=== PATIENT | female | born 1985 | race Caucasian/White ===

== ENCOUNTER 2020-04-27 12:15 | Outpatient (REF) | payer OTHER, SELFPAY | END 2020-04-27 12:16 | disposition home or self-care (01) | LOC: HO.HMGCLDS 12:15 | PROVIDERS: PCP Internal Medicine; Visit Provider Internal Medicine | DX: Z20.828 Contact with and (suspected) exposure to other viral communicable diseases (principal) | CPT/HCPCS: 87635 ==

== ENCOUNTER 2020-06-20 12:04 | Outpatient (REF) | payer OTHER, SELFPAY | END 2020-06-20 12:05 | disposition home or self-care (01) | LOC: HO.HMGCLDS 12:04 | PROVIDERS: Visit Provider Internal Medicine | DX: Z20.828 Contact with and (suspected) exposure to other viral communicable diseases (principal) | CPT/HCPCS: C9803; U0003 ==

== ENCOUNTER 2020-08-14 12:32 | Outpatient (REF) | payer OTHER, SELFPAY ==
--- NOTE | 2020-08-14 12:34 | MR_ITS ---
EXAMINATION: MR BRAIN WITHOUT AND WITH CONTRAST CLINICAL INFORMATION: Headache. COMPARISON: Brain MRI dated 05/27/2016. TECHNIQUE: Multiplanar, multisequence imaging of the brain was performed before and after the intravenous administration of 10 mL of Gadavist. FINDINGS: No diffusion abnormalities are identified to suggest an acute infarct. A small 5 mm round T2 hypointense nodule with enhancement contiguous with a portion of the cord plexus in the left lateral ventricle remains unchanged. The ventricles are normal in size. No mass effect or midline shift is seen. No brain parenchymal signal abnormality is noted. No extra-axial fluid collections are seen. The brainstem and cerebellum are normal. There is no abnormal parenchymal or leptomeningeal enhancement. The gradient refocused acquisition demonstrates no pathologic magnetic susceptibility artifact to indicate underlying acute or chronic blood products. The orbits and pituitary axis appear normal. The craniovertebral junction, marrow signal, and midline structures are normal. The major intracranial flow voids at the level of the [place] are preserved. The dural venous sinus flow voids are maintained. The mastoid air cells and paranasal sinuses are well aerated. MR/MR head/brain wo/w con IMPRESSION: Stable nonspecific, small enhancing left lateral intraventricular nodule. Otherwise, relatively normal MRI of the brain. No acute process.
== END 2020-08-14 12:33 | disposition home or self-care (01) ==
LOC: HO.MRI 12:32
PROVIDERS: Visit Provider Internal Medicine
DX: R51.9 Headache, unspecified (principal)
CPT/HCPCS: 70553; A9585

== ENCOUNTER 2021-02-12 11:15 | Outpatient (REF) | payer OTHER, SELFPAY ==
[2021-02-12 13:47] LABS: MANUAL DIFF FLAG NO
[2021-02-12 13:58] LABS: Basophils Percent Auto 0.4 % (0-2); Eosinophils Absolute Auto 0.3 X10*3/uL (0.0-0.4); Hematocrit 43.2 % (37-47); Hemoglobin 13.9 g/dl (12.0-16.0); Imm Gran Abs Auto 0.01 X10*3/uL (0.00-0.03); Imm Gran Pct Auto 0.1 % (0.0-0.4); Lymphocytes Absolute Auto 1.9 X10*3/uL (1.2-4.9); Lymphocytes Percent Auto 28.1 % (20-40); Mean Corpuscular HGB Conc 32.2 g/dl (31.0-35.0); Mean Corpuscular Hemoglobin 28.5 pg (27.0-33.0); Mean Corpuscular Volume 88.7 fL (80-98); Mean Platelet Volume 12.1 fL (9.4-12.3); Monocytes Absolute Auto 0.4 X10*3/uL (0.1-1.2); Monocytes Percent Auto 6.1 % (2-11); Neutrophils Absolute Auto 4.1 X10*3/uL (2.0-8.3); Neutrophils Percent Auto 61.3 % (45-73); Platelet Count 282 X10*3/uL (160-400); Red Blood Count 4.87 X10*6/uL (4.20-5.50); Red Cell Distribution Width 12.7 % (11.0-16.0); White Blood Count 6.7 X10*3/uL (4.8-10.8)
[2021-02-12 14:41] LABS: Anion Gap 13 (12-20); Blood Urea Nitrogen 11 mg/dL (9-16); Calcium 9.1 mg/dL (8.4-10.2); Carbon Dioxide 27 mmol/L (22-29); Chloride 107 mmol/L (96-108); Cholesterol 207 mg/dL; Estimated Glomerular Filt Rate > 60; Glucose Fasting 91 mg/dL (60-99); HDL Cholesterol 34 mg/dL; LDL Cholesterol Calculated 143 mg/dl; Potassium 4.8 mmol/L (3.3-5.1); Sodium 142 mmol/L (135-145); Triglycerides 150 mg/dL
[2021-02-12 15:02] LABS: Vitamin D 25-OH Total 17.8 ng/mL (>30)
[2021-02-12 15:15] LABS: Folate 12.5 ng/mL (> or = 4.0); Vitamin B12 215 pg/mL (200-900)
[2021-02-14 20:10] LABS: TS Negative Control Passed; TS Panel A 0; TS Panel B 1; TS Positive Control Passed; TSpotTB Negative (SeeBelow)
== END 2021-02-12 11:16 | disposition home or self-care (01) ==
LOC: HO.HMGCLDS 11:15
PROVIDERS: PCP Internal Medicine; Visit Provider Nurse Practitioner Family
DX: I10 Essential (primary) hypertension (principal); R51.9 Headache, unspecified; G93.89 Other specified disorders of brain; E78.5 Hyperlipidemia, unspecified; E55.9 Vitamin D deficiency, unspecified; E53.8 Deficiency of other specified B group vitamins; E66.01 Morbid (severe) obesity due to excess calories; Z02.1 Encounter for pre-employment examination
CPT/HCPCS: 36415; 80048; 80061; 82306; 82607; 82746; 85025; 86481

== ENCOUNTER 2021-02-26 09:14 | Outpatient (REF) | payer OTHER, SELFPAY | END 2021-02-26 09:15 | disposition home or self-care (01) | LOC: HO.HMGCLDS 09:14 | PROVIDERS: Hospitalist; PCP Internal Medicine; Visit Provider Internal Medicine | DX: Z20.822 Contact with and (suspected) exposure to COVID-19 (principal) | CPT/HCPCS: U0003; U0005 ==

== ENCOUNTER 2021-04-18 11:26 | Outpatient (REF) | payer OTHER, SELFPAY ==
[2021-04-18 13:48] LABS: Baso%MD 0.4 %; Eos%MD 2.3 %; Hematocrit 43.6 % (37-47); IG%MD 0.2 %; Lymph%MD 32.7 %; Mean Corpuscular HGB Conc 32.1 g/dl (31.0-35.0); Mean Corpuscular Hemoglobin 28.3 pg (27.0-33.0); Mean Corpuscular Volume 88.3 fL (80-98); Mean Platelet Volume 12.2 fL (9.4-12.3); Mono%MD 6.4 %; Platelet Count 287 X10*3/uL (160-400); Red Blood Count 4.94 X10*6/uL (4.20-5.50); Red Cell Distribution Width 12.8 % (11.0-16.0)
[2021-04-18 14:17] LABS: Alanine Aminotransferase 22 U/L (0-31); Alkaline Phosphatase 85 U/L (39-117); Anion Gap 10 (12-20); Aspartate Amino Transferase 19 U/L (5-31); Bilirubin Total 0.5 mg/dL (0.0-1.0); Blood Urea Nitrogen 12 mg/dL (9-16); Calcium 9.7 mg/dL (8.4-10.2); Carbon Dioxide 28 mmol/L (22-29); Chloride 105 mmol/L (96-108); Estimated Glomerular Filt Rate > 60; Glucose Random 85 mg/dL (60-115); Lipase 16 U/L (8-78); Potassium 4.7 mmol/L (3.3-5.1); Sodium 138 mmol/L (135-145)
[2021-04-18 14:36] LABS: Band Neutrophils Percent 2 % (3-5); Eosinophils Absolute Manual 0.2 X10*3/UL (0.0-0.8); Eosinophils Percent Manual 2 % (0-4); Lymphocytes Absolute Manual 2.5 X10*3/uL (0.6-4.8); Lymphocytes Percent Manual 28 % (20-40); Monocytes Absolute Manual 0.6 X10*3/uL (0.0-1.2); Monocytes Percent Manual 7 % (2-11); Neutrophils Absolute Manual 5.7 X10*3/uL (2.2-7.9); Neutrophils Percent Manual 61 % (45-73)
[2021-04-18 14:37] LABS: Platelet Estimate NORMAL (NORMAL); Platelet Morphology Comment NORMAL; RBC Morphology NORMAL
== END 2021-04-18 11:27 | disposition home or self-care (01) ==
LOC: HO.HMGCLDS 11:26
PROVIDERS: PCP Internal Medicine; Visit Provider Physician Assistant Medical
DX: R10.13 Epigastric pain (principal)
CPT/HCPCS: 36415; 80053; 83690; 85007; 85027

== ENCOUNTER 2021-06-02 12:16 | Emergency (ER) | payer OTHER, SELFPAY ==
--- NOTE | ~2021-06-02 | CT_ITS ---
EXAMINATION: CT HEAD WITHOUT CONTRAST CT CERVICAL SPINE WITHOUT CONTRAST CLINICAL INFORMATION: Dizziness, nausea and weakness. COMPARISON: Brain MRI of 08/14/2020. TECHNIQUE: Multidetector volumetric CT imaging of the head and cervical spine is acquired without intravenous contrast administration. Postprocessing is performed at a dedicated workstation. Multiplanar reformatted images are submitted. This CT scan was performed using dose optimization techniques as appropriate to a performed exam including the following: *Automated exposure control *Adjustment of mA and/or kV according to patient size (this includes techniques or standardized protocols for targeted exams were dose is matched to indication/reason for exam; i.e. extremities or head) *Use of iterative reconstruction technique DLP: 1164 mGy-cm. FINDINGS: CT Head: There is no evidence of acute intracranial hemorrhage, midline shift or mass effect. Gdmj-ru-wpvpg matter differentiation is well preserved. No acute territorial infarction. No abnormal extra-axial fluid collection. Ventricles and sulci are normal. No evidence of abnormal parenchymal attenuation. The osseous calvarium is intact. Mastoid air cells and middle ear cavities are well aerated. Paranasal sinuses are well aerated. Calvarial soft tissues are unremarkable. CT Cervical Spine: Vertebral body heights and alignment are maintained. There is mild reversal of the cervical lordosis. Intervertebral disc spaces are well preserved. Posterior elements are intact and in normal alignment. Atlantoaxial and atlantooccipital alignments are maintained. No evidence of prevertebral soft tissue swelling. No evidence of central canal or neural foraminal stenosis. The thyroid gland and visualized lung apices are unremarkable. CT/CT cervical spine wo con IMPRESSION: 1. No evidence of acute intracranial abnormality. 2. No evidence of acute fracture or subluxation in the cervical spine. Mild reversal of cervical lordosis is likely related to patient positioning or muscle spasm.
[2021-06-02 12:25] VITALS: BP 165/87; PULSE 71; RESP 18; O2SAT 100; BMI 43.2
--- NOTE | 2021-06-02 14:06 | ECG_ITS ---
Test Reason : DIZZYNESS Blood Pressure : / mmHG Vent. Rate : 054 BPM Atrial Rate : 054 BPM P-R Int : 166 ms QRS Dur : 078 ms QT Int : 466 ms P-R-T Axes : 035 039 027 degrees QTc Int : 441 ms Sinus bradycardia Otherwise normal ECG When compared with ECG of 24-JUN-2019 15:59, No significant change was found Referred By: David Black Electronically Signed By:DEE HWANG MD
--- NOTE | 2021-06-02 14:13 | ED_ITS ---
HPI - Dizziness General Chief Complaint: Dizziness <CEE Merlos - Last Filed: 06/02/21 17:30> Stated Complaint: dizziness <CEE Merlos - Last Filed: 06/02/21 17:30> Time Seen by Provider: 06/02/21 13:40 <CEE Merlos Last Filed: 06/02/21 17:30> Source: patient <CEE Merlos - Last Filed: 06/02/21 17:30> Mode of arrival: ambulatory <CEE Merlos Last Filed: 06/02/21 17:30> Limitations: no limitations <CEE Merlos Last Filed: 06/02/21 17:30> History of Present Illness HPI Narrative: 35-year-old female past medical history significant for migraines presents to the emergency department with severe dizziness and nausea which awoke her from her sleep at 3:00 a.m. today. Patient states that since 3:00 a.m. she has been very dizzy, she describes it as the room spinning around her, she also states that she is having issues when walking, and she feels like she is going to the sides. She also reports intermittent nausea since that time. Patient also describes feeling of fullness to her head, but it is not a headache. She states that this has never happened to her before. Patient denies numbness, tingling, fevers, chills, chest pain, shortness of breath, vomiting, abdominal pain, vision changes, difficulties speaking <CEE Merlos Last Filed: 06/02/21 17:30> MD elicited complaint: dizziness, difficulty walking and vertigo <CEE Merlos - Last Filed: 06/02/21 17:30> Onset (ago): hour(s) (11) <CEE Merlos Last Filed: 06/02/21 17:30> Timing: sudden onset, awoke with symptoms and constant <CEE Merlos Last Filed: 06/02/21 17:30> Severity: severe <CEE Merlos Last Filed: 06/02/21 17:30> Description: sense of movement, room spinning and off-balance <CEE Merlos - Last Filed: 06/02/21 17:30> Context: change in body position and at rest <CEE Merlos - Last Filed: 06/02/21 17:30> History of similar symptoms: No <CEE Merlos - Last Filed: 06/02/21 17:30> Exacerbating factors: movement/ambulation, change in body position and keeping eyes closed <CEE Merlos - Last Filed: 06/02/21 17:30> Relieving factors: nothing <CEE Merlos - Last Filed: 06/02/21 17:30> Associated symptoms: nausea <CEE Merlos - Last Filed: 06/02/21 17:30> Related Data Home Medications: Home Medications Medication Instructions Recorded Confirmed cholecalciferol (vitamin D3) 50 50 mcg PO DAILY 07/20/20 01/11/21 mcg (2,000 unit) capsule cyanocobalamin (vitamin B-12) 1,000 mcg PO DAILY 07/20/20 01/11/21 1,000 mcg tablet Previous Rx's Medication Instructions Recorded ehrjseljgi-ybuyzweaqfdku-jdxcrsrf 1 cap PO Q12H PRN #10 cap 08/03/20 50 mg-325 mg-40 mg capsule omeprazole 20 mg capsule,delayed 20 mg PO DAILY #30 cap 01/11/21 release cholecalciferol (vitamin D3) 1,250 1,250 mcg PO QWEEK 90 Days #13 cap 02/14/21 mcg (50,000 unit) capsule prednisone 20 mg tablet 20 mg PO .COMPLEX #18 tab 03/12/21 famotidine 20 mg tablet (Acid 20 mg PO BID PRN #60 tab 04/18/21 [employer] (famotidine)) omeprazole 40 mg capsule,delayed 40 mg PO DAILY #30 cap 04/18/21 release meclizine 25 mg tablet 25 mg PO DAILY PRN #14 tab 06/02/21 ondansetron HCl 4 mg tablet 4 mg PO Q8H PRN #10 tab 06/02/21 (Zofran) <CEE Merlos Last Filed: 06/02/21 17:30> Allergies/Adverse Reactions: Allergies Allergy/AdvReac Type Severity Reaction Status Date / Time No Known Allergies Allergy Verified 04/18/21 11:01 <CEE Merlos - Last Filed: 06/02/21 17:30> Review of Systems Review of Systems: Constitutional : No Weight loss, No Fever, No Chills, No Fatigue, No Malaise ENT/Mouth : No sore throat, No Rhinorrhea Eyes: No Eye Pain, No Swelling, No Redness Cardiovascular : No Chest Pain, No SOB, No Dyspnea on Exertion, No Orthopnea, No Edema, No Palpitations Respiratory : No Cough, No Sputum, No Wheezing Gastrointestinal : + Nausea, No Vomiting, No Diarrhea, No Constipation, No abdominal Pain, No Hematochezia, No Melena Genitourinary : No Dysuria, No Urinary Frequency, No Hematuria, Musculoskeletal : No joint pain, No Myalgias, No Joint Swelling Skin : No Skin Lesions, No rash Neuro : + Weakness, No Numbness, + Dizziness, No Headache, +fullness to head All other systems reviewed and are negative <CEE Merlos - Last Filed: 06/02/21 17:30> [facility] Past Medical History Attestation statement: The following information was validated with the patient. <CEE Merlos - Last Filed: 06/02/21 17:30> Source: old records reviewed and nursing notes reviewed <CEE Merlos - Last Filed: 06/02/21 17:30> Medical History: Medical History Chronic headaches Diarrhea Dyslipidemia Headache Mass of brain Morbid obesity Post-traumatic osteoarthritis of left knee Right ACL tear Vitamin B12 deficiency Vitamin D deficiency <CEE Merlos Last Filed: 06/02/21 17:30> Surgical History: Surgical History History of section History of left knee surgery History of oophorectomy, unilateral LAP-BAND surgery status Status post small bowel resection <CEE Merlos Last Filed: 06/02/21 17:30> Family History Family History: Family History Father Multiple myeloma Essential hypertension Diabetes mellitus Mother Essential hypertension Diabetes mellitus Asthma Mental health disorder Sister Thyroid condition Maternal Aunt Substance use disorder Maternal Grandmother Mental health disorder <CEE Merlos - Last Filed: 06/02/21 17:30> Social History Social History: Social History Alcohol intake: never Patient Tobacco Use Status: Never used Tobacco Advance Directives: No Advance Directives Information Provided: Yes Patient : No <CEE Merlos - Last Filed: 06/02/21 17:30> Physical Exam Vital Signs: Vital Signs: Last Vital Signs Pulse 71 06/02/21 17:32 Resp 16 06/02/21 17:30 BP 148/100 H 06/02/21 17:32 Pulse Ox 100 06/02/21 17:30 Body Mass Index 43.2 Patient's vital signs are stable, however, she is noted to be slightly hypertensive. Will repeat vitals at a later time. <CEE Merlos - Last Filed: 06/02/21 17:30> Vital Signs: Last Vital Signs Pulse 71 06/02/21 17:32 Resp 16 06/02/21 17:30 BP 148/100 H 06/02/21 17:32 Pulse Ox 100 06/02/21 17:30 Body Mass Index 43.2 <CEE Quintanilla - Last Filed: 06/02/21 21:06> Appearance: Alert.? Oriented X3.? No acute distress.? Head: Normocephalic, atraumatic, no step-offs or deformities. + patient reports dizziness with rapid movement of head Eyes: Pupils equal, round and reactive to light.? ENT: Pharynx normal.? Neck: Normal inspection.? Neck supple.? CVS: Normal heart rate and rhythm.? Pulses normal.? Respiratory: No respiratory distress.? Breath sounds normal.? Abdomen: Soft and nontender.? Skin: Skin warm and dry.? Normal skin color.? Normal skin turgor.? Extremities: No lower extremity edema.? No calf ttp. 5/5 strength to bilateral upper and lower extremities Back: No midline tenderness, no C-spine tenderness, full range of motion, no CVA tenderness bilaterally Neuro: Oriented X 3.? No motor deficit.? No sensory deficit. Normal gait. Normal hand oil rig roughneck. Normal zkibbf-px-bead. Normal ptop-ci-syba. Normal sensation to upper and lower extremities. <CEE Merlos - Last Filed: 06/02/21 17:30> Course Course Course Narrative: patient seen and examined - agree with assessment and plan <CEE Quintanilla - Last Filed: 06/02/21 21:06> Reevaluation(s) Reevaluation #1: Upon re-evaluation patient states that medications, and fluids really helped improve her symptoms. She now reports minimal dizziness. Able to ambulate, and no longer feels like she was feeling before. She states that the nausea is now gone. I will wait for the final read of the CT. If this is negative. My plan is to discharge the patient home with Zofran and meclizine as needed for dizziness. This is likley vertigo. Unlikely that this is a posterior stroke. <CEE Merlos - Last Filed: 06/02/21 17:30> Time: 16:33 <CEE Merlos - Last Filed: 06/02/21 17:30> Reevaluation #2: CT scan with no acute findings. To note, patient had an MRI of the brain done on August 14, 2020 which showed a stable nonspecific, small enhancing left lateral intra-articular nodule. Orthostatic vital signs pending. <CEE Merlos - Last Filed: 06/02/21 17:30> Time: 17:02 <CEE Merlos Last Filed: 06/02/21 17:30> Reevaluation #3: Orthostatic vital signs negative. Patient is safe for discharge home with PCP follow-up. <CEE Merlos Last Filed: 06/02/21 17:30> Time: 17:22 <CEE Merlos Last Filed: 06/02/21 17:30> MDM - Dizziness MDM Narrative Medical decision making narrative: 1413 35-year-old female past medical history significant for migraines presents to the emergency department with severe dizziness described as vertigo and nausea which awoke her from her sleep at 3:00 a.m. today. She also reports difficulty with ambulation, she feels like she is falling to the sides and she reports genrealized weakness. Denies recent URI, difficulty with speech, CP, SOB, vom iting, vision changes, headache, tinnitus, photophobia. Patient has been eating and drinking well, and reports that yesterday she felt fine. Upon physical examination patient is resting comfortably on the stretcher with her eyes closed. In no acute distress. Lungs are clear to auscultation. S1 and S2 appreciated free of murmurs. No focal neuro deficits. 5/5 strength upper and lower extremities. No pronator drift. Normal hand oil rig roughneck. Normal bfphlf-es-yldj. Normal jora-aj-yuxp. Patient's gait is steady, free of ataxia, however she reports as though she feels like she is going to the sides. Normal rapid alternating movements. Extraocular movements intact free of nystagmus. Pupils equal round and reactive to light. Patient reports dizziness with rapid movement of head. Bilateral tympanic membranes pearly white with normal landmarks, no effusion, edema, cerumen impaction, perforated TM or erythema noted Plan at this time is to obtain basic labs, magnesium, COVID, EKG, CT of the cervical spine, and CT of head and brain. She will be given fluids, Zofran, meclizine. This is likely vertigo, however ICH,/stroke and electrolyte abnormalities will be ruled out. <CEE Merlos - Last Filed: 06/02/21 17:30> Medical Records Attestation: I reviewed the patient's medical records. <CEE Merlos - Last Filed: 06/02/21 17:30> Lab Data Attestation: I reviewed the patient's lab results. <CEE Merlos - Last Filed: 06/02/21 17:30> Result diagrams: : 06/02/21 14:30 06/02/21 14:30 <CEE Merlos - Last Filed: 06/02/21 17:30> Labs: Lab Results 06/02/21 06/02/21 06/02/21 Range/Units 14:26 14:30 14:30 WBC 8.0 (4.8-10.8) X10*3/uL RBC 4.97 (4.20-5.50) X10*6/uL Hgb 14.4 (12.0-16.0) g/dl Hct 43.3 (37.0-47.0) % MCV 87.1 (80.0-98.0) fL MCH 29.0 (27.0-33.0) pg MCHC 33.3 (31.0-35.0) g/dl RDW 12.2 (11.0-16.0) % Plt Count 291 (160-400) X10*3/uL MPV 11.6 (9.4-12.3) fL Immature Gran % (Auto) 0.3 (0.0-0.4) % Neut % (Auto) 54.8 (45-73) % Lymph % (Auto) 35.9 (20-40) % [place] % (Auto) 6.0 (2-11) % Eos % (Auto) 2.6 (0-4) % Baso % (Auto) 0.4 (0-2) % Lymph # (Auto) 2.9 (1.2-4.9) X10*3/uL [place] # (Auto) 0.5 (0.1-1.2) X10*3/uL Eos # (Auto) 0.2 (0.0-0.4) X10*3/uL Baso # (Auto) 0.0 (0.0-0.2) X10*3/uL Abs Immat Gran (auto) 0.02 (0.00-0.03) X10*3/uL Absolute Neuts (auto) 4.4 (2.0-8.3) x10*3/uL Absolute Nucleated RBC 0.000 (0.0-0.012) X10*3/uL Nucleated RBC % (auto) 0.0 (0.0-0.2) /100WBC Sodium 137 (135-145) mmol/L Potassium 4.2 (3.3-5.1) mmol/L Chloride 103 (96-108) mmol/L Carbon Dioxide 27 (22-29) mmol/L Anion Gap 11 L (12-20) BUN 10 (9-16) mg/dL Creatinine 0.78 (0.5-1.4) mg/dL Estim Creat Clear Calc 129.3 Estimated GFR > 60 Random Glucose 84 (60-115) mg/dL Calcium 9.3 (8.4-10.2) mg/dL Magnesium 1.9 (1.6-2.6) mg/dL Total Bilirubin 0.5 (0.0-1.0) mg/dL AST 20 (5-31) U/L ALT 21 (0-31) U/L Alkaline Phosphatase 92 (39-117) U/L Total Protein 7.1 (6.5-8.0) g/dL Albumin 3.9 (3.5-5.0) g/dL COVID-19 (KAVYA) Negative (Negative) COVID-19 Clin Com See Note <CEE Merlos - Last Filed: 06/02/21 17:30> Lab Results 06/02/21 06/02/21 06/02/21 Range/Units 14:26 14:30 14:30 WBC 8.0 (4.8-10.8) X10*3/uL RBC 4.97 (4.20-5.50) X10*6/uL Hgb 14.4 (12.0-16.0) g/dl Hct 43.3 (37.0-47.0) % MCV 87.1 (80.0-98.0) fL MCH 29.0 (27.0-33.0) pg MCHC 33.3 (31.0-35.0) g/dl RDW 12.2 (11.0-16.0) % Plt Count 291 (160-400) X10*3/uL MPV 11.6 (9.4-12.3) fL Immature Gran % (Auto) 0.3 (0.0-0.4) % Neut % (Auto) 54.8 (45-73) % Lymph % (Auto) 35.9 (20-40) % [place] % (Auto) 6.0 (2-11) % Eos % (Auto) 2.6 (0-4) % Baso % (Auto) 0.4 (0-2) % Lymph # (Auto) 2.9 (1.2-4.9) X10*3/uL [place] # (Auto) 0.5 (0.1-1.2) X10*3/uL Eos # (Auto) 0.2 (0.0-0.4) X10*3/uL Baso # (Auto) 0.0 (0.0-0.2) X10*3/uL Abs Immat Gran (auto) 0.02 (0.00-0.03) X10*3/uL Absolute Neuts (auto) 4.4 (2.0-8.3) x10*3/uL Absolute Nucleated RBC 0.000 (0.0-0.012) X10*3/uL Nucleated RBC % (auto) 0.0 (0.0-0.2) /100WBC Sodium 137 (135-145) mmol/L Potassium 4.2 (3.3-5.1) mmol/L Chloride 103 (96-108) mmol/L Carbon Dioxide 27 (22-29) mmol/L Anion Gap 11 L (12-20) BUN 10 (9-16) mg/dL Creatinine 0.78 (0.5-1.4) mg/dL Estim Creat Clear Calc 129.3 Estimated GFR > 60 Random Glucose 84 (60-115) mg/dL Calcium 9.3 (8.4-10.2) mg/dL Magnesium 1.9 (1.6-2.6) mg/dL Total Bilirubin 0.5 (0.0-1.0) mg/dL AST 20 (5-31) U/L ALT 21 (0-31) U/L Alkaline Phosphatase 92 (39-117) U/L Total Protein 7.1 (6.5-8.0) g/dL Albumin 3.9 (3.5-5.0) g/dL COVID-19 (KAVYA) Negative (Negative) COVID-19 Clin Com See Note <CEE Quintanilla - Last Filed: 06/02/21 21:06> Imaging Data CT of head/cervical spine.: Attestation: I personally reviewed and interpreted this imaging study as follows: <CEE Merlos - Last Filed: 06/02/21 17:30> Radiologist's impression: CT/CT cervical spine wo con IMPRESSION: 1. No evidence of acute intracranial abnormality. ? 2. No evidence of acute fracture or subluxation in the cervical spine. Mild reversal of cervical lordosis is likely related to patient positioning or muscle spasm.? <CEE Merlos - Last Filed: 06/02/21 17:30> ECG Data Attestation: I personally reviewed and interpreted this ECG as follows: <CEE Merlos - Last Filed: 06/02/21 17:30> ECG interpretation date: 06/02/21 <CEE Merlos - Last Filed: 06/02/21 17:30> ECG interpretation time: 15:43 <CEE Merlos - Last Filed: 06/02/21 17:30> Prior ECG tracings: available for review <CEE Merlos - Last Filed: 06/02/21 17:30> Interpretation: Ventricular rate of 54, TX interval normal, QRS normal, QT/QTC normal. EKG shows sinus bradycardia, no ST elevations or inversions. No acute ischemia. No acute changes when compared to EKG from June 24, 2019. <CEE Merlos - Last Filed: 06/02/21 17:30> Critical Care Time Critical Care Time Critical Care Time: No <CEE Merlos - Last Filed: 06/02/21 17:30> Discharge Plan Discharge Clinical Impression: Vertigo, Nausea <CEE Merlos - Last Filed: 06/02/21 17:30> Patient Disposition: Home, Self-Care <CEE Merlos - Last Filed: 06/02/21 17:30> Instructions: Vertigo (ED), Dizziness (ED) <CEE Merlos - Last Filed: 06/02/21 17:30> Additional Instructions: Take your medications as prescribed. If you were prescribed antibiotics today, it is important that you take your medication to their entirety, do not skip any doses, do not finish them early. Zofran is a medication use intake for nausea/vomiting. Meclizine is a medication for dizziness, take this as needed. Follow-up with your primary care provider this week. Return to the emergency department with new or worsening symptoms. Such as worsening dizziness, vision changes, weakness, chest pain, shortness of breath, fevers, chills, headaches. In case of emergency call 911 <CEE Merlos - Last Filed: 06/02/21 17:30> Prescriptions: New meclizine 25 mg tablet 25 mg PO DAILY PRN (Reason: dizziness) Qty: 14 RF: 0 ondansetron HCl [Zofran] 4 mg tablet 4 mg PO Q8H PRN (Reason: nausea and vomiting) Qty: 10 RF: 0 No Action pymahfggrg-kqpaftgqbukeu-aeey 50-325-40 mg capsule 1 cap PO Q12H PRN (Reason: headache) Qty: 10 RF: 0 cholecalciferol (vitamin D3) 1,250 mcg (50,000 unit) capsule 1,250 mcg PO QWEEK 90 Days Qty: 13 RF: 0 omeprazole 20 mg capsule,delayed release(DR/EC) 20 mg PO DAILY Qty: 30 RF: 0 cyanocobalamin (vitamin B-12) 1,000 mcg tablet 1,000 mcg PO DAILY RF: 0 cholecalciferol (vitamin D3) 50 mcg (2,000 unit) capsule 50 mcg PO DAILY RF: 0 prednisone 20 mg tablet 20 mg PO .COMPLEX Qty: 18 RF: 0 omeprazole 40 mg capsule,delayed release(DR/EC) 40 mg PO DAILY Qty: 30 RF: 0 famotidine [Acid [employer] (famotidine)] 20 mg tablet 20 mg PO BID PRN (Reason: dyspepsia) Qty: 60 RF: 0 <CEE Merlos - Last Filed: 06/02/21 17:30> Referrals: Sarah Sal MD [Primary Care Provider] - 2 days <CEE Merlos - Last Filed: 06/02/21 17:30> Stand Alone Forms: Work/School Release <CEE Merlos - Last Filed: 06/02/21 17:30> Interventions: ED Discharge Assessment Last Done: 06/02/21 17:47 <CEE Merlos Last Filed: 06/02/21 17:30> Discharge Date/Time: 06/02/21 17:47 <CEE Merlos - Last Filed: 06/02/21 17:30>
[2021-06-02] MEDS: Meclizine HCl 25 MG TABLET PO (14:58)
[2021-06-02] MEDS: ondansetron HCL 4 MG/2 ML VIAL IVPUSH (14:58)
[2021-06-02 14:59] LABS: MANUAL DIFF FLAG NO
[2021-06-02] MEDS: 0.9 % Sodium Chloride 1,000 ML 999 ML IV (14:59)
[2021-06-02 15:07] LABS: Basophils Percent Auto 0.4 % (0-2); Eosinophils Absolute Auto 0.2 X10*3/uL (0.0-0.4); Eosinophils Percent Auto 2.6 % (0-4); Hematocrit 43.3 % (37.0-47.0); Hemoglobin 14.4 g/dl (12.0-16.0); Imm Gran Abs Auto 0.02 X10*3/uL (0.00-0.03); Imm Gran Pct Auto 0.3 % (0.0-0.4); Lymphocytes Absolute Auto 2.9 X10*3/uL (1.2-4.9); Lymphocytes Percent Auto 35.9 % (20-40); Mean Corpuscular HGB Conc 33.3 g/dl (31.0-35.0); Mean Corpuscular Volume 87.1 fL (80.0-98.0); Mean Platelet Volume 11.6 fL (9.4-12.3); Monocytes Absolute Auto 0.5 X10*3/uL (0.1-1.2); Neutrophils Absolute Auto 4.4 x10*3/uL (2.0-8.3); Neutrophils Percent Auto 54.8 % (45-73); Platelet Count 291 X10*3/uL (160-400); Red Blood Count 4.97 X10*6/uL (4.20-5.50); Red Cell Distribution Width 12.2 % (11.0-16.0)
[2021-06-02 15:13] LABS: COVID-19 Test Negative (Negative); IDNOW Serial# 9DD0AD1C
[2021-06-02 15:44] LABS: Alanine Aminotransferase 21 U/L (0-31); Albumin Level 3.9 g/dL (3.5-5.0); Alkaline Phosphatase 92 U/L (39-117); Anion Gap 11 (12-20); Aspartate Amino Transferase 20 U/L (5-31); Bilirubin Total 0.5 mg/dL (0.0-1.0); Blood Urea Nitrogen 10 mg/dL (9-16); Calcium 9.3 mg/dL (8.4-10.2); Carbon Dioxide 27 mmol/L (22-29); Chloride 103 mmol/L (96-108); Creatinine Clr Calc Pharmacy 129.3; Estimated Glomerular Filt Rate > 60; Glucose Random 84 mg/dL (60-115); Magnesium 1.9 mg/dL (1.6-2.6); Potassium 4.2 mmol/L (3.3-5.1); Sodium 137 mmol/L (135-145); Total Protein 7.1 g/dL (6.5-8.0)
--- NOTE | 2021-06-02 16:01 | PC.NURSE ---
alert, speech clear, skin wpd, dizziness improved, nad
[2021-06-02 17:30] VITALS: BP 126/82; PULSE 67; RESP 16; O2SAT 100
[2021-06-02 17:31] VITALS: BP 126/82; BP 140/95; PULSE 66; PULSE 67
[2021-06-02 17:32] VITALS: BP 148/100; PULSE 71
== END 2021-06-02 17:47 | disposition home or self-care (01) ==
PROVIDERS: Physician Assistant; Emergency Provider Emergency Medicine Emergency Medical Services; PCP Internal Medicine
DX: R42 Dizziness and giddiness (principal); R11.0 Nausea; Z20.822 Contact with and (suspected) exposure to COVID-19
CPT/HCPCS: 36415; 70450; 72125; 80053; 83735; 85025; 87635; 93005; 96361; 96374; 99283; 99284; J2405

== ENCOUNTER 2021-08-30 10:54 | Outpatient (REF) | payer OTHER, SELFPAY ==
--- NOTE | ~2021-08-30 | FL_ITS ---
EXAMINATION: XR GI SERIES CLINICAL INFORMATION: Epigastric pain COMPARISON: August 03, 2019 TECHNIQUE: Air-contrast upper GI examination FINDINGS: There is normal apposition of the vocal cords while saying E. There is normal elevation of the soft palate while saying candy. Patient swallowed thin and thick barium without difficulty. There is no evidence of nasopharyngeal reflux or tracheal aspiration. The esophagus had normal motility and distensibility without persistent stricture or mucosal abnormality appreciated. No hiatal hernia was seen. While turning there was a small amount of gastroesophageal reflux seen within the distal most aspect of the esophagus which cleared rapidly. The stomach demonstrates normal distensibility without abnormal mass or ulceration. There was no delay in gastric emptying. The duodenal bulb and sweep appeared unremarkable. FLUOROSCOPY TIME: 1.6 minutes NUMBER OF IMAGES: 11 images FL/FL upper GI series IMPRESSION: Minimal gastroesophageal reflux which cleared rapidly. Otherwise unremarkable air-contrast upper GI examination.
== END 2021-08-30 10:55 | disposition home or self-care (01) ==
LOC: HO.XRAY 10:54
PROVIDERS: PCP Internal Medicine; Visit Provider Internal Medicine
DX: R10.13 Epigastric pain (principal)
CPT/HCPCS: 74240

== ENCOUNTER 2022-12-20 12:29 | Outpatient (AMB) | payer OTHER, SELFPAY ==
[2022-12-20 12:46] VITALS: BP 94/70; PULSE 65; O2SAT 97; BMI 44.6
--- NOTE | 2022-12-20 12:46 | A.OFFPC_ITS ---
Vital Signs 12/20/22 12:46 Height 5 ft 5 in Weight 268 lb BMI 44.6 BP 94/70 Blood Pressure Location Lt brachial Position Sitting Pulse 65 Pulse Source Pulse Oximeter Pulse Oximetry (%) 97 Oxygen Delivery Method Room Air Intake Visit Reasons: Annual PE Intake Note: Pt is here today her PE: Pt has a appt for her Pap smear at [facility] end of this month Is last menstrual period known: Yes Last menstrual period: 11/29/22 Allergies No Known Allergies Allergy (Verified 12/20/22 13:01) Medication List - Last Reconciled 12/20/22 by Sarah aSl MD No Known Home Meds Tobacco use date assessed: 12/20/22 HPI Annual PE HPI Details 37-year-old lady here today for physical exam. She has history of dyslipidemia currently not on any medication but has been trying to follow a low-cholesterol diet. Has an appointment for her cervical cancer screening to be done at [facility] later this month [facility] Medical History Acute gastroenteritis Chronic diarrhea of unknown origin Chronic headaches Diarrhea Dyslipidemia Headache Mass of brain Morbid obesity Post-traumatic osteoarthritis of left knee Right ACL tear Vitamin B12 deficiency Vitamin D deficiency Surgical History History of section History of left knee surgery History of oophorectomy, unilateral LAP-BAND surgery status Status post small bowel resection Family History Father Multiple myeloma Essential hypertension Diabetes mellitus Mother Essential hypertension Diabetes mellitus Asthma Mental health disorder Sister Thyroid condition Maternal Aunt Substance use disorder Maternal Grandmother Mental health disorder Social History Housing: Apartment Alcohol intake: never Patient Tobacco Use Status: Never used Tobacco e-Cigarette/Vaping Use: Never Used Cognitive needs: No Hearing needs: No Vision needs: No Female Reproductive History Menstrual Date of last menstrual period: 11/29/22 Questionnaire PHQ-9 Over the last 2 weeks, how often have you been bothered by any of the following problems? 1. Little interest or pleasure in doing things: not at all 2. Feeling down, depressed, or hopeless: not at all 3. Trouble falling or staying asleep, or sleeping too much: several days 4. Feeling tired or having little energy: more than half the days 5. Poor appetite or overeating: several days 6. Feeling bad about yourself - or that you are a failure or have let yourself or your family down: not at all 7. Trouble concentrating on things, such as reading the newspaper or watching television: not at all 8. Moving or speaking so slowly that other people could have noticed. Or the opposite - being so fidgety or restless that you have been moving around a lot more than usual: several days 9. Thoughts that you would be better off or of hurting yourself in some way: not at all Total score: 5 Depression Screening Interpretation: Negative 56383 - PHQ-9 Billing: Yes Source: Developed by Drs. Didier Mcdonough, Eloisa Ojeda, Matias Arias and colleagues, with an educational jorge from [employer]. AUDIT C Alcohol Use Questionnaire (AUDIT-C) 1. How often do you have a drink containing alcohol?: Monthly or less 2. How many drinks containing alcohol do you have on a typical day when you are drinking?: 1 or 2 3. How often do you have six or more drinks on one occasion?: Never Total Score: 1 DELMIS-7 AMB Questionnaire DELMIS-7 Date DELMIS - 7 assessed: 12/20/22 Feeling nervous, anxious, or on edge: 0 = Not at all Not being able to stop or control worryin = Not at all Worrying too much about different things: 0 = Not at all Trouble relaxin = Not at all Source: Developed by Drs. Didier Mcdonough, Eloisa Ojeda, Matias Arias and colleagues, with an educational jorge from [employer]. DELMIS-7 Assessment Billing DELMIS-7 Assessment Tool: DELMIS-7 Assessment 78370 Review of Systems Const Denies body aches, Denies chills, Denies fever(s) and Denies headache(s) Eyes Denies change in vision ENT Denies dizziness, Denies headache(s), Denies nasal congestion and Denies post nasal drip Card Denies chest pain, Denies rapid heart rate, Denies irregular heart rhythm, Denies lightheadedness and Denies dyspnea Resp Denies cough and Denies dyspnea GI Denies abdominal pain, Denies melena, Denies bloating, Denies hematochezia and Denies heartburn Reports no additional complaints Musc Details: Painful Mass on upper back Skin/Breast Denies breast skin changes, Denies breast pain, Denies breast mass and Denies rash Neuro Denies dizziness and Denies headache(s) Psych Reports no additional complaints Endo Reports no additional complaints Red/Lymph Reports no additional complaints Aller/Immun Reports no additional complaints Physical exam (Primary Care) Vital Signs: Last Vital Signs Pulse 65 12/20/22 12:46 BP 94/70 12/20/22 12:46 Pulse Ox 97 12/20/22 12:46 Oxygen Delivery Method Room Air 12/20/22 12:46 BMI result Body Mass Index 44.6 Tobacco/Smoking Status: Tobacco use Status Tobacco use date assessed 12/20/22 12/20/22 12:48 Patient Tobacco Use Status Never used Tobacco 12/20/22 12:48 e-Cigarette/Vaping Use Never Used 12/20/22 12:48 Depression Screening Interpretation: Negative Const General: comfortable and no acute distress Orientation/consciousness: patient oriented x3 HENMT Mouth: Normal oral and palatal mucosa present and moist mucous membranes Eyes General: appearance normal, both eyes and all related structures Neck Neck: Yes full ROM, Yes no lymphadenopathy and Yes supple Chest Breast/axilla palpation: normal palpation of the breasts and normal palpation of the axillae Resp Effort & Inspection: normal respiratory effort and able to speak in complete sentences Auscultation: clear to auscultation bilaterally Cardio Other: S1-S2 present regular rate and rhythm GI Palpation (GI): Soft to palpation, no guarding and no masses Other: Sees OBGYN General: Yes deferred Back/Spine/Pelvis Other: Nodular mass, slightly tender to palpation on upper back Skin Other: No rash Neuro General: patient oriented x3, gait normal, tone normal, moves all extremities, Normal light touch and pain sensation, no focal motor deficits and CN's II-XI intact bilaterally Extrem General: Yes full ROM, Yes no joint enlargement, Yes no clubbing, cyanosis or edema, Yes no calf tenderness and Yes normal gait Psych Appearance: grossly normal and well kempt Mental Status: mental status grossly normal Speech and movement: Normal speech and movement present Affect: normal affect Attitude: cooperative Thought process: Normal thought process present Assessment and Plan Assessment & Plan (1) Annual visit for general adult medical examination with abnormal findings: Code(s): Z00.01 - Encounter for general adult medical examination with abnormal findings Plan: Will check appropriate labs. Recommended dental visit every 6 months and regular eye exams, at least every 2 years. Take adequate calcium in diet and vitamin-D 3 at 2000 IU per cap once a day, in addition to weight-bearing exercises to help maintain good muscle tone and weight control. Instructed to do self-breast exam, and continue to get yearly mammogram, , goes to her own OBGYN for her routine Pap and pelvic exam. She has had COVID vaccinations the past but does not want to get the booster, does not want to get flu shots, up-to-date with her Tdap (2) Morbid obesity: Comment: now [facility] by Dr Aguayo Code(s): E66.01 - Morbid (severe) obesity due to excess calories Plan: Discussed need to increase activity and wt reduction. Recommended focusing on improving your health instead of dieting. : Eat Mediterranean diet, limit foods high in fat, sugar, and calories, eat slowly, pay attention to portion sizes, plan your meals ahead of time, start regular physical activity 150 minutes of moderate intensity exercise or 90 minutes/week of vigorous exercise and increase water intake. (3) Dyslipidemia: Code(s): E78.5 - Hyperlipidemia, unspecified Plan: fasting lipid profile ordered today. Stressed importance of following a low- cholesterol diet and getting regular exercise, at least 30 minutes 3 to 4 times a week. Advised patient to make healthy food choices, eat more fruits, vegetables, whole grains, wild caught fish and low-fat dairy. Limit amount of meat and fried or fatty food products, as well as processed foods and fast foods. (4) Nodule of skin of back: Code(s): R22.2 - Localized swelling, mass and lump, trunk Plan: Surgical consult ordered (5) Vitamin D deficiency: Code(s): E55.9 - Vitamin D deficiency, unspecified Plan: Will check vitamin-D level Orders: Orders Alanine Aminotransferase 12/20/22 E66.01 - Morbid (severe) obesity due to excess calories, E78.5 - Hyperlipidemia, unspecified, Z00.01 - Encounter for general adult medical examination with abnormal findings Aspartate Amino Transferase 12/20/22 E66.01 - Morbid (severe) obesity due to excess calories, E78.5 - Hyperlipidemia, unspecified, Z00.01 - Encounter for general adult medical examination with abnormal findings Basic Metabolic Panel Fasting 12/20/22 E66.01 - Morbid (severe) obesity due to excess calories, E78.5 - Hyperlipidemia, unspecified, Z00.01 - Encounter for general adult medical examination with abnormal findings Lipid Panel 12/20/22 E66.01 - Morbid (severe) obesity due to excess calories, E78.5 - Hyperlipidemia, unspecified, Z00.01 - Encounter for general adult medical examination with abnormal findings Vitamin D 25-OH Total 12/20/22 E55.9 - Vitamin D deficiency, unspecified Referrals General Surgery Referral R22.2 - Localized swelling, mass and lump, trunk Coding Level of Care Code Est Pt Prev Care 18-39y(44106) Diagnoses Annual visit for general adult medical examination with abnormal findings Z00.01 Morbid obesity E66.01 Dyslipidemia E78.5 Nodule of skin of back R22.2 Vitamin D deficiency E55.9 Additional Codes DELMIS-7 Assessment Billing - DELMIS-7 Assessment Tool: DELMIS-7 Assessment 50439 ([id number])
== END 2022-12-20 13:18 | disposition home or self-care (01) ==
PROVIDERS: Visit Provider Internal Medicine
DX: Z00.01 Encounter for general adult medical examination with abnormal findings (principal); E66.01 Morbid (severe) obesity due to excess calories; E55.9 Vitamin D deficiency, unspecified; Z68.41 Body mass index [BMI] 40.0-44.9, adult; E78.5 Hyperlipidemia, unspecified; R22.2 Localized swelling, mass and lump, trunk
CPT/HCPCS: 99395

== ENCOUNTER 2023-08-18 09:31 | Outpatient (AMB) | payer OTHER, SELFPAY ==
[2023-08-18 10:52] VITALS: BP 118/78; PULSE 81; TEMP 36.1; O2SAT 97; BMI 45.4
--- NOTE | 2023-08-18 10:52 | MHC.OFFWIV ---
Intake Vital Signs 08/18/23 10:52 Height 5 ft 5 in Weight 123.831 kg BMI 45.4 BP 118/78 Blood Pressure Location Lt brachial Position Sitting Pulse 81 Pulse Source Pulse Oximeter Temp 97.0 F Temp Source Temporal Artery Scan Pulse Oximetry (%) 97 Intake Visit Reasons: EP cough headache diarrhea [id number] Intake Note: pt is here cough headache diarrhea started Patient Tobacco Use Status: Never used Tobacco Allergies No Known Allergies Allergy (Verified 08/18/23 10:53) Do you need a note to return to daycare/school/sports/work: Yes HPI HPI Comments History of Present Illness Details 1127 37-year-old female presents with fatigue, malaise, myalgia, diarrhea, cough, sore throat all of which started Friday and have been worsening. She reports she feels very tired and out of energy. No known sick contacts. Denies fevers, chills, chest pain, shortness of breath, vomiting, hematemesis, hematochezia. Physical exam benign Plan at this time viral testing. No signs of threat to earache, retropharyngeal or peritonsillar abscess, epiglottitis. Will discharge with albuterol, prednisone, loperamide. Educated patient on diagnosis and treatment plan, answered all question, patient verbalizes understanding. At this time patient will be discharged home, advised to return with new or worsening symptoms. Educated on worrisome signs and symptoms and when to return. At this time I feel comfortable discharge home. [facility] Medical History Chronic diarrhea of unknown origin Acute gastroenteritis Diarrhea Chronic headaches Right ACL tear Post-traumatic osteoarthritis of left knee Morbid obesity Vitamin B12 deficiency Vitamin D deficiency Dyslipidemia Headache Mass of brain Surgical History Status post small bowel resection LAP-BAND surgery status History of oophorectomy, unilateral History of section History of left knee surgery Family History Father Multiple myeloma Essential hypertension Diabetes mellitus Mother Essential hypertension Diabetes mellitus Asthma Mental health disorder Sister Thyroid condition Maternal Aunt Substance use disorder Maternal Grandmother Mental health disorder Social History Housing: Apartment Alcohol intake: never Patient Tobacco Use Status: Never used Tobacco e-Cigarette/Vaping Use: Never Used Cognitive needs: No Hearing needs: No Vision needs: No Review of Systems Const All systems reviewed & are unremarkable except as noted in HPI and below Physical Exam Vital Signs: Last Vital Signs Temp 97.0 F 08/18/23 10:52 Pulse 81 08/18/23 10:52 BP 118/78 08/18/23 10:52 Pulse Ox 97 08/18/23 10:52 BMI result Body Mass Index 45.4 vss Appearance: Alert.? Oriented X3.? No acute distress.? Head: Normocephalic, atraumatic, no step-offs or deformities Eyes: Pupils equal, round and reactive to light.? ENT: Pharynx normal.? Uvula midline. No abscess, exudate. Speaking in full sentences controlling secretions well Neck: Normal inspection.? Neck supple.? CVS: Normal heart rate and rhythm.? Pulses normal.? Respiratory: No respiratory distress.? Breath sounds normal.? Abdomen: Soft and nontender.? Skin: Skin warm and dry.? Normal skin color.? Normal skin turgor.? Extremities: No lower extremity edema.? No calf ttp. 5/5 strength to bilateral upper and lower extremities Neuro: Oriented X 3.? No motor deficit.? No sensory deficit. CN 2-12 intact Assessment & Plan Assessment & Plan (1) Viral illness: Code(s): B34.9 - Viral infection, unspecified Plan Take your medications as prescribed. If you were prescribed antibiotics today, it is important that you take your medication to their entirety, do not skip any doses, do not finish them early. Follow-up with your primary care provider this week. Return to the emergency department with new or worsening symptoms. Such as fevers, chills, chest pain, shortness of breath, nausea, vomiting, dizziness, headache, vision changes, lethargy In case of emergency call 911 Orders: Orders SARS-CoV2/FLU/RSV Today B34.9 - Viral infection, unspecified Medications: New prednisone 40 mg (2 x 20 mg) PO DAILY 10 tabs 0RF 5 days loperamide (Anti-Diarrheal (loperamide)) 2 mg PO QID PRN 20 caps 0RF loose stool albuterol sulfate 90 mcg/actuation 2 puffs inhalation Q6H PRN 6.7 grams 0RF shortness of breath or wheezing Coding Level of Care Code Est Pt Level 3 (57413) Diagnoses Viral illness B34.9
== END 2023-08-18 11:47 | disposition home or self-care (01) ==
PROVIDERS: PCP Internal Medicine; Visit Provider Physician Assistant
DX: B34.9 Viral infection, unspecified (principal); J02.9 Acute pharyngitis, unspecified
CPT/HCPCS: 87880; 99213

== ENCOUNTER 2023-08-18 13:17 | Outpatient (REF) | payer OTHER, SELFPAY ==
[2023-08-18 14:30] LABS: Influenza A PCR NEGATIVE (Negative); Influenza B PCR NEGATIVE (Negative); Resp Syncy Virus RNA Qual PCR NEGATIVE (Negative); SARS COV2 PCR INHOUSE NEGATIVE (Negative)
== END 2023-08-18 13:18 | disposition home or self-care (01) ==
LOC: HO.HMGCLNP 13:17
PROVIDERS: Visit Provider Physician Assistant
DX: B34.9 Viral infection, unspecified (principal); Z11.52 Encounter for screening for COVID-19; Z20.828 Contact with and (suspected) exposure to other viral communicable diseases
CPT/HCPCS: 0241U

== ENCOUNTER 2025-03-24 09:08 | Outpatient (AMB) | payer OTHER, SELFPAY ==
[2025-03-24 09:46] VITALS: BP 102/80; PULSE 65; RESP 16; TEMP 36.6; O2SAT 100; BMI 46.8
--- NOTE | 2025-03-24 09:46 | MHC.PC.OV ---
Vital Signs 03/24/25 09:46 Height 5 ft 5 in Weight 281 lb BMI 46.8 BP 102/80 Blood Pressure Location Rt brachial Position Sitting Respiration 16 Pulse 65 Pulse Source Pulse Oximeter Temp 97.9 F Temp Source Oral Pulse Oximetry (%) 100 Oxygen Delivery Method Room Air Intake Visit Reasons: F/U Intake Note: Pt is here today for her PE Allergies No Known Allergies Allergy (Verified 03/24/25 10:04) Medication List - Last Reconciled 03/24/25 by Sarah Sal MD No Known Home Meds Tobacco use date assessed: 03/24/25 Dental Screening Dental Screen Date: 03/24/25 Did you have a dental visit in the last 12 months?: No Did you have a dental problem in the last 6 months where you did not have access to dental care?: No Was dental information given to patient?: Patient has dentist HPI F/U HPI Details 39-year-old lady here today for physical exam. Goes to [facility] for her routine Pap and pelvic exam, copy of latest cervical cancer screening results requested. Has morbid obesity, previously underwent lap band surgery by Dr. Aguayo , but regained some of the weight back. Has been eating a healthy diet, avoiding a lot of carbs and junk food, tries to stay active but unable to do so because of recurrent low back pain. Like to see if she can be placed on something to help her with losing weight. [facility] Medical History History of tear of ACL (anterior cruciate ligament) Post-traumatic osteoarthritis of left knee Morbid obesity Vitamin B12 deficiency Vitamin D deficiency Dyslipidemia Surgical History Status post small bowel resection LAP-BAND surgery status History of oophorectomy, unilateral History of section History of left knee surgery Family History Father Multiple myeloma Essential hypertension Diabetes mellitus Mother Essential hypertension Diabetes mellitus Asthma Mental health disorder Sister Thyroid condition Maternal Aunt Substance use disorder Maternal Grandmother Mental health disorder Social History Housing: Apartment Alcohol intake: never Patient Tobacco Use Status: Never used Tobacco e-Cigarette/Vaping Use: Never Used service: No Current occupational status: employed Cognitive needs: No Hearing needs: No Vision needs: No Questionnaire PHQ-9 Over the last 2 weeks, how often have you been bothered by any of the following problems? 1. Little interest or pleasure in doing things: not at all 2. Feeling down, depressed, or hopeless: not at all 3. Trouble falling or staying asleep, or sleeping too much: more than half the days 4. Feeling tired or having little energy: more than half the days 5. Poor appetite or overeating: not at all 6. Feeling bad about yourself - or that you are a failure or have let yourself or your family down: not at all 7. Trouble concentrating on things, such as reading the newspaper or watching television: several days 8. Moving or speaking so slowly that other people could have noticed. Or the opposite - being so fidgety or restless that you have been moving around a lot more than usual: not at all 9. Thoughts that you would be better off or of hurting yourself in some way: not at all Total score: 5 Depression Screening Interpretation: Negative Depression Screening Done: Yes 75493 - PHQ-9 Billing: Yes Source: Developed by Drs. Didier Mcdonough, Eloisa Ojeda, Matias Arias and colleagues, with an educational jorge from [employer]. Thrive Questionnaire Date Thrive assessed: 03/24/25 I am a: Patient What is your living situation today?: I have a steady place to live Within the past 12 months, did the food you bought not last and you didn't have the money to get more?: Sometimes True Within the past 12 months, did you worry whether your food would run out before you got money to buy more?: Never true Do you have trouble paying for medicines?: Yes Do you have trouble getting transportation to medical appointments?: No Do you have trouble paying your heating and electricity bill?: Yes Do you have trouble taking care of your child, family member or friend?: No Do you have trouble with day-to-day activities such as bathing, preparing meals, shopping, managing finances, etc.?: No Are you currently unemployed and looking for a job?: No Are you interested in more education?: Yes THRIVE Score: 2 AUDIT C Alcohol Use Questionnaire (AUDIT-C) 1. How often do you have a drink containing alcohol?: Never Total Score: 0 Score Reviewed/Action Taken: Yes DELMIS-7 AMB Questionnaire DELMIS-7 Date DELMIS - 7 assessed: 03/24/25 Feeling nervous, anxious, or on edge: 1 = Several days Not being able to stop or control worryin = Not at all Worrying too much about different things: 1 = Several days Trouble relaxin = Several days Being so restless that it is hard to sit still: 1 = Several days Becoming easily annoyed or irritable: 1 = Several days Feeling afraid as if something awful might happen: 1 = Several days Total DELMIS-7 score (0-4 normal; 5-9 mild; 10-14 moderate; 15-21 severe): 6 Source: Developed by Drs. Didier Mcdonough, Eloisa Ojeda, Matias Arias and colleagues, with an educational jorge from [employer]. DELMIS-7 Assessment Billing DELMIS-7 Assessment Tool: DELMIS-7 Assessment 75400 Review of Systems Const Denies chills, Denies fever(s) and Denies headache(s) Eyes Denies change in vision ENT Denies dizziness, Denies headache(s), Denies nasal congestion and Denies post nasal drip Card Denies chest pain, Denies rapid heart rate, Denies irregular heart rhythm, Denies lightheadedness and Denies dyspnea Resp Denies cough and Denies dyspnea GI Denies abdominal pain, Denies melena, Denies bloating, Denies hematochezia and Denies heartburn Details: Goes to [facility], has an appointment already scheduled for her routine Pap and pelvic exam Reports no additional complaints Skin/Breast Denies breast pain, Denies breast mass and Denies rash Neuro Denies dizziness and Denies headache(s) Psych Reports no additional complaints Endo Reports no additional complaints Red/Lymph Reports no additional complaints Aller/Immun Reports no additional complaints Physical exam (Primary Care) Vital Signs: Last Vital Signs Temp 97.9 F 03/24/25 09:46 Pulse 65 03/24/25 09:46 Resp 16 03/24/25 09:46 BP 102/80 03/24/25 09:46 Pulse Ox 100 03/24/25 09:46 Oxygen Delivery Method Room Air 03/24/25 09:46 BMI result Body Mass Index 46.8 Tobacco/Smoking Status: Tobacco use Status Tobacco use date assessed 03/24/25 03/24/25 09:54 Patient Tobacco Use Status Never used Tobacco 03/24/25 09:47 e-Cigarette/Vaping Use Never Used 03/24/25 09:47 PHQ-9: PHQ-9 Score PHQ-9: Total score 9 03/24/25 10:45 Depression Screening Interpretation: Negative Thrive Assessment: Date of Thrive Assessment Date Thrive assessed 03/24/25 03/24/25 10:45 Const General: comfortable and no acute distress Nutritional Appearance: obese morbidly obese Orientation/consciousness: patient oriented x3 HENMT Mouth: Normal oral and palatal mucosa present and moist mucous membranes Eyes General: appearance normal, both eyes and all related structures Neck Neck: Yes full ROM, Yes no lymphadenopathy and Yes supple Chest Breast/axilla palpation: normal palpation of the breasts and normal palpation of the axillae Resp Effort & Inspection: normal respiratory effort and able to speak in complete sentences Auscultation: clear to auscultation bilaterally Cardio Other: S1-S2 present regular rate and rhythm GI Palpation (GI): Soft to palpation, no guarding and no masses Other: Sees OBGYN General: Yes no CVA tenderness and Yes deferred Back/Spine/Pelvis Back: no CVA tenderness and No back tenderness Skin Other: No rash Neuro General: patient oriented x3, gait normal, tone normal, moves all extremities, Normal light touch and pain sensation, no focal motor deficits and CN's II-XI intact bilaterally Extrem General: Yes full ROM, Yes no joint enlargement, Yes no clubbing, cyanosis or edema, Yes no calf tenderness and Yes normal gait Psych Appearance: grossly normal and well kempt Mental Status: mental status grossly normal Speech and movement: Normal speech and movement present Affect: normal affect Coding Level of Care Code Est Pt Prev Care 18-39y(36338) Diagnoses Annual visit for general adult medical examination with abnormal findings Z00.01 Dyslipidemia E78.5 Morbid obesity E66.01 Vitamin D deficiency E55.9 Fatigue, unspecified type R53.83 Fatigue type: unspecified Additional Codes DELMIS-7 Assessment Billing - DELMIS-7 Assessment Tool: DELMIS-7 Assessment 50467 ([id number]) PHQ-9 - 73347 - PHQ-9 Billing: Yes ([id number]) Assessment & Plan Assessment & Plan (1) Annual visit for general adult medical examination with abnormal findings: Code(s): Z00.01 - Encounter for general adult medical examination with abnormal findings Plan: Fasting labs ordered. Reminded to get dental cleaning every six-months, and get at least an eye exam every [address] [facility] for her routine Pap and pelvic exam. Advised to do regular breast exams check for any mass. Start mammogram at age 40. Patient does not want to get any COVID booster, flu shot, reminded to she is overdue to get her tetanus booster. (2) Dyslipidemia: Code(s): E78.5 - Hyperlipidemia, unspecified Category: Medical Plan: Fasting lipid panel ordered. Advised adherence to healthy eating habits, getting regular exercise. Referred to cold working supervisor (3) Morbid obesity: Comment: [facility] Aguayo Code(s): E66.01 - Morbid (severe) obesity due to excess calories Category: Medical Plan: Has been compliant with healthy eating habits, but admits to not getting any regular exercise due to back pain. Will try on phentermine 15 mg per tablet to take 2 hours after breakfast. Reinforced importance of adhering to a healthy diet and staying active. Referred to cold working supervisor in house for further guidance with regards to diet. Will see her back for follow-up 4-6 weeks after starting phentermine (4) Vitamin D deficiency: Code(s): E55.9 - Vitamin D deficiency, unspecified Category: Medical Plan: Vitamin-D level ordered, advised to start taking [id number] vitamin D3 at 2000 units daily during the winter (5) Fatigue: Code(s): R53.83 - Other fatigue Qualifiers: Fatigue type: unspecified Qualified Code(s): R53.83 - Other fatigue Plan: Ordered CBC and vitamin-D level Orders: Orders Lipid Panel 03/24/25 E55.9 - Vitamin D deficiency, unspecified, E66.01 - Morbid (severe) obesity due to excess calories, E78.5 - Hyperlipidemia, unspecified, R51.9 - Headache, unspecified, Z13.1 - Encounter for screening for diabetes mellitus Complete Blood Count Auto Diff 03/24/25 R53.83 - Other fatigue Glucose Fasting 03/24/25 E55.9 - Vitamin D deficiency, unspecified, E66.01 - Morbid (severe) obesity due to excess calories, E78.5 - Hyperlipidemia, unspecified, R51.9 - Headache, unspecified, Z13.1 - Encounter for screening for diabetes mellitus Vitamin D 25-OH Total 03/24/25 E55.9 - Vitamin D deficiency, unspecified, E66.01 - Morbid (severe) obesity due to excess calories, E78.5 - Hyperlipidemia, unspecified, R51.9 - Headache, unspecified, Z13.1 - Encounter for screening for diabetes mellitus Medications: New phentermine must administer 2 hours after breakfast 15 mg PO DAILY 30 caps 1RF
--- OUTSIDE RECORDS SUMMARY | 2025-03-24 10:29 | XMS_ITS | Clinical Summary ---
Author Organization [facility] Address [address] [place] [address] Phone Care Team Providers Care Shoe Cleaner Name Role Phone Sarah Sal MD Primary Care Provider [phone] Allergies No known active allergies Medications No known medications Surgical History Surgery Date Site/Laterality Comments LAPAROSCOPIC GASTRIC BANDING PROCEDURE: LAP ADJUSTABLE GASTRIC BAND Medical History Medical History Date Comments Hyperlipidemia, mixed DX:Hyperli pidemia, mixed Family History Medical History Relation Name Comments Hypertension Father Other: complications from bone marrow cancer Father Diabetes Mother Hypertension Mother Nephrolithiasis Mother Relation Name Status Comments Father Mother Alive Social History Tobacco Use Types Packs/Day Years Used Date Smoking Tobacco: Never Smokeless Tobacco: Never Alcohol Use Standard Drinks/Week Comments Yes 0 (1 standard drink = 0.6 oz pur e alcohol) Comments Unknown Sex and Gender Information Value Date Recorded Sex Assigned at Not on file Legal Sex Female 4:47 PM EST Gender Identity Not on file Sexual Orientation Not on file Obstetrics History Last Filed Vital Signs Vital Sign Reading Time Taken Comments Blood Pressure 116/78 12/08/2024 5:06 PM EDT Pulse 75 12/08/2024 5:06 PM EDT Temperature 36.6 C (97.9 F) 12/08/2024 5:06 PM EDT Respiratory Rate 16 12/08/2024 5:06 PM EDT Oxygen Saturation 98% 12/08/2024 5:06 PM EDT Inhaled Oxygen Concentration - - Weight 125 kg (275 lb) 12/08/2024 5:06 PM EDT Height 165 cm (5' 4.96 ) 12/08/2024 5:06 PM EDT Body Mass Index 45.82 12/08/2024 5:06 PM EDT Plan of Treatment Health Maintenance Due Date Last Done Comments Hepatitis B Vaccines (1 of 3 - 19+ 3-dose series) 2004 Cervical Cancer Screening: P ap Smear 2006 Cholesterol Screening (Lipid Panel) 06/12/2022 HIV Screening 06/12/2022 Hepatitis C Screening 06/12/2022 Social Influencers of Health Screening 06/12/2022 Depression Screening 07/14/2024 DTaP,Tdap,and Td Vaccines (2 - Td or Tdap) 01/02/2025 01/02/2015 COVID-19 Vaccine (3 - 2024-2 6 season) 2025 05/25/2021, 05/04/2021 Influenza Vaccine (#1) 2025 05/29/2017 HIB Vaccines Aged Out No longer eligi ble based on patient's age to complete this topic HPV Vaccines Aged Out No longer eligi ble based on patient's age to complete this topic Hepatitis A Vaccines Aged Out No long er eligible based on patient's age to complete this topic IPV Vaccines Aged Out No longer eligi ble based on patient's age to complete this topic MMR Vaccines Aged Out No longer eligi ble based on patient's age to complete this topic Meningococcal ACWY Vaccine Aged Out N o longer eligible based on patient's age to complete this topic Meningococcal B Vaccine Aged Out No l onger eligible based on patient's age to complete this topic Pneumococcal Vaccine: Pediatrics (0 to 5 Years) and At-Risk Patients (6 to 49 Years) Aged Out No longer eligible b ased on patient's age to complete this topic RSV Immunization Patients Under 20 months Aged Out No longer eligible b ased on patient's age to complete this topic Varicella Vaccines Aged Out No longer eligible based on patient's age to complete this topic Insurance MEDICAID - [place] Care Teams Shoe Cleaner Relationship Specialty Start Date End Date Sarah Sal MD [address] [place] [address] PCP - General Internal Medicine 12/25/15
== END 2025-03-24 10:35 | disposition home or self-care (01) ==
PROVIDERS: PCP Internal Medicine; Visit Provider Internal Medicine
DX: Z00.01 Encounter for general adult medical examination with abnormal findings (principal); E78.5 Hyperlipidemia, unspecified; E66.01 Morbid (severe) obesity due to excess calories; Z68.42 Body mass index [BMI] 45.0-49.9, adult; E55.9 Vitamin D deficiency, unspecified; R53.83 Other fatigue

== ENCOUNTER → 2025-03-24 09:08 | Outpatient (BNVA) | payer OTHER, SELFPAY | PROVIDERS: PCP Internal Medicine; Visit Provider Internal Medicine | DX: Z00.01 Encounter for general adult medical examination with abnormal findings (principal); E78.5 Hyperlipidemia, unspecified; E66.01 Morbid (severe) obesity due to excess calories; Z68.42 Body mass index [BMI] 45.0-49.9, adult; E55.9 Vitamin D deficiency, unspecified; R53.83 Other fatigue; Z13.31 Encounter for screening for depression; Z13.39 Encounter for screening examination for other mental health and behavioral disorders | CPT/HCPCS: 96127; 99395 ==